=== PATIENT | female | born 1960 | race Caucasian/White ===

== ENCOUNTER → 2021-09-27 | Outpatient (CLI) | payer OTHER ==
[~2021-09-27] MED LIST: MULTI VITAMIN1 EACH PO; PROTONIX40 M4 PO; VITAMIN D325 MC2 PO; VITCB500GO PO; ZINC CARNOSINE PO; ZINC50 M2 PO
== END ==
LOC: LAB 10:45
PROVIDERS: ATTEND Student in an Organized Health Care Education/Training Program
DX: Z20.822 Contact with and (suspected) exposure to COVID-19 (principal)

== ENCOUNTER → 2021-09-30 | Day surgery (SDC) | payer OTHER ==
[~2021-09-30] VITALS: Ht 157.5 cm; Wt 70.3 kg
[2021-09-30 07:30] VITALS: BP 129/62
--- NOTE | 2021-10-04 06:14 | O ---
[facility] [place] [address] OPERATIVE REPORT Name: MICHELLE GALAVIZ Room #: REG [facility]..#: [id number] Admission: 09/30/21 Attend Phys: Francisco Morales MD Discharge: Date of : 58 Report #: [id number] THIS REPORT FOR: cc: Pablo Newton,Pablo Simpson,Francisco Jasso MD ~ cc: Pablo Newton DO DATE OF SERVICE: 09/30/2021 PREOPERATIVE DIAGNOSIS: Left complete nasolacrimal duct obstruction. POSTOPERATIVE DIAGNOSIS: Left complete nasolacrimal duct obstruction. PROCEDURES: Conjunctival dacryocystorhinostomy, left eye with nasal surgical videoendoscopy. SURGEON: Francisco Morales MD VERTICAL BORER: None. ANESTHESIA: General. COMPLICATIONS: None. INDICATIONS FOR SURGERY: This pleasant 60-year-old woman who has previously undergone a conjunctival dacryocystorhinostomy but has not followed up regularly and as such, her Barrett tube was completely occluded. It could not be irrigated in the office. It is unclear as to whether she has nasal pathology that is also contributing to the occlusion. She presents today for a repeat conjunctival dacryocystorhinostomy with insertion of a glass bypass tube in order to reestablish patent lacrimal outflow. Informed consent was obtained to include but not limited to the potential risk for loss of vision, bleeding, infection, failure to improve the problem, the potential need for further surgery or treatment. DESCRIPTION OF PROCEDURE: The patient was taken to the operating room where general anesthesia was undertaken. The left medial canthal area was then infiltrated with Xylocaine with epinephrine mixed with Marcaine and Wydase. The left side of the nose was then packed with Afrin-soaked cottonoids. The patient was then prepped and draped in the usual sterile fashion. The left medial canthal area was inspected and then attention was turned into the intranasal space. The cottonoids were removed and the video endoscope was brought into the field. Inspecting the nose, the video endoscopic examination revealed that the entire lateral wall of the nose was masked with dried mucus that was completely occluding the tube orifice and cementing the tube up against the lateral wall. [facility] [address] [place] [address] OPERATIVE REPORT Name: MICHELLE GALAVIZ Room #: REG [facility]..#: [id number] Admission: 09/30/21 Attend Phys: Francisco Morales MD Discharge: Date of : 58 Report #: [id number] This was taken down surgically with a Golden Eagle periosteal elevator and suctioned back out of the nose. Mild bleeding ensued where the mucus was removed. A guidewire was then passed through the Barrett tube, which was challenging because it was densely occluded. The tube was able to be retrogradely withdrawn over the guidewire, however. A 4 mm x 16 mm Barrett tube was then passed over the guidewire back into the space that was free of obstruction. The tract irrigated well through the newly placed tube. Erythromycin was then placed on the eye. The nasal vault inspected one last time, which showed the tube to be in good position. The patient was then transported to the recovery area having tolerated the procedure well with no anesthetic or operative complications being noted. <ELECTRONICALLY SIGNED> By: Francisco Morales MD 10/04/21 0614 [id number] Francisco Morales MD /nt
== END | disposition home or self-care (01) ==
LOC: OR 06:42
PROVIDERS: ATTEND Ophthalmology
DX: H04.552 Acquired stenosis of left nasolacrimal duct (principal); E78.00 Pure hypercholesterolemia, unspecified; K21.9 Gastro-esophageal reflux disease without esophagitis; Z98.890 Other specified postprocedural states; Z79.899 Other long term (current) drug therapy; Z85.828 Personal history of other malignant neoplasm of skin; Z98.51 Tubal ligation status; Z90.710 Acquired absence of both cervix and uterus; Z90.49 Acquired absence of other specified parts of digestive tract; Z88.8 Allergy status to other drugs, medicaments and biological substances
CPT/HCPCS: 50010; 50101; 50386; 50398; 51636; 56528; 56531; 62110; 62900; 64037; 70005